=== PATIENT | female | born 1955 | race Caucasian/White ===

== ENCOUNTER 2022-04-18 04:58 | Emergency (ER) | payer MEDICAID ==
[~2022-04-18] VITALS: Ht 154.9 cm; Wt 122.5 kg
[2022-04-18 05:05] VITALS: BP_SYST 189
--- NOTE | 2022-04-18 05:32 | NUR ---
Placed in room 5 . Placed on milieu counselor, blood pressure machine and pulse oximeter. To gown for exam. Side rails up. Report given to Mane RODRIGUEZ.
--- NOTE | 2022-04-18 05:39 | NUR ---
PATIENT BACK FROM XRAY.
--- NOTE | 2022-04-18 06:16 | NUR ---
PATIENT PLACED ON TELE MONITOR AND RESTING IN BED WITHOUT ISSUE.
--- NOTE | 2022-04-18 06:30 | NUR ---
ER at bedside examining patient.
[2022-04-18 06:35] LABS: BASOPHILS # (AUTO) 0.1 K/uL (0.0-0.2); BASOPHILS % (AUTO) 0.7 % (0.0-2.0); EOSINOPHILS # (AUTO) 0.5 K/uL (0.0-0.4); EOSINOPHILS % (AUTO) 4.9 % (0.0-4.0); HEMATOCRIT 32.7 % (36-48); HEMOGLOBIN 11.2 g/dL (12.0-16.0); LYMPHOCYTES # (AUTO) 2.4 K/uL (1.0-5.5); LYMPHOCYTES % (AUTO) 23.6 % (20.5-51.5); MEAN CORPUSCULAR HEMOGLOBIN 30 pg (27-31); MEAN CORPUSCULAR HGB CONC 34 % (32-36); MEAN CORPUSCULAR VOLUME 87 fL (79.0-98.0); MONOCYTES # (AUTO) 0.7 K/uL (0.0-1.0); MONOCYTES % (AUTO) 6.5 % (1.7-9.3); NEUTROPHILS # (AUTO) 6.6 K/uL (1.8-7.7); NEUTROPHILS % (AUTO) 64.3 % (40.0-70.0); PLATELET COUNT (AUTO) 308 K/uL (130-430); RED BLOOD CELL COUNT(AUTO) 3.74 MIL/uL (4.2-6.2); RED CELL DISTRIBUTION WIDTH 13.5 % (9.0-15.0); WHITE BLOOD COUNT (AUTO) 10.3 K/uL (4.8-10.8)
[2022-04-18 07:06] LABS: ANION GAP 6 (5-15); CALCIUM 9.1 mg/dL (8.4-11.0); CHLORIDE 104 mmol/L (98-107); CREATININE 0.63 mg/dL (0.55-1.30); GLUCOSE 155 mg/dL (70-99); POTASSIUM 4.1 mmol/L (3.5-5.1); SODIUM SERUM 139 mmol/L (136-145); UREA NITROGEN, BLOOD 15 mg/dL (8-21)
[2022-04-18 07:15] LABS: ALANINE AMINOTRANSFERASE 22 U/L (12-78); ALBUMIN 3.3 g/dL (3.4-4.8); ASPARTATE AMINOTRANSFERASE 14 U/L (10-37); TOTAL BILIRUBIN 0.6 mg/dL (0.0-1.0)
--- NOTE | 2022-04-18 07:15 | NUR ---
REPORT GIVEN TO JENNIFER FAUSTIN
--- NOTE | 2022-04-18 07:39 | NUR ---
Assumed care of pt and pt is in bed resting with no s/s of distress. VSS. A&Ox4. Skin intact. Pt has no c/o. Daughter at bedside. No chest pain and no sob. Denies n/v. Bed in lowest position.
[2022-04-18 07:49] LABS: GFR AFRICAN AMERICAN 121 mL/min (>90)
[2022-04-18 08:44] VITALS: BP_SYST 162
== END 2022-04-18 08:45 | disposition home or self-care (01) ==
LOC: SED 04:58
DX: I10 Essential (primary) hypertension (principal); R11.0 Nausea; R42 Dizziness and giddiness
CPT/HCPCS: 36415; 71046-TC; 80053; 84484; 85025; 93005; 99285